=== PATIENT | female | born 1955 | race African-American/Black ===

== ENCOUNTER 2016-11-22 21:05 | Emergency (ER) | payer BC ==
[~2016-11-22] VITALS: Ht 152.4 cm; Wt 67.0 kg
[~2016-11-22 21:05] MED LIST: ACET325S8 PR; BENI20TA25 PO; HYDR50TA5 PO; NAPR220T95 PO; VERA180C PO
[2016-11-22 21:25] VITALS: BP 161/94; PULSE 89; RESP 20; TEMP 98.5; O2SAT 98
--- NOTE | 2016-11-22 21:57 | PD ---
HPI Chief Complaint: Headache Time Seen by Provider: 21:49 Travel History International Travel<30 days: No Contact w/Intl Traveler<30days: No Traveled to known affect area: No History of Present Illness HPI The patient is a 61-year-old female that complains of a bifrontal headache for 3 years, worse in the last 2 weeks. She is starting been to [facility] where CAT scan was negative. She does have a history of hypertension and will see her primary care physician, Dr. Guerra, tomorrow. Apparently, she was put on an antidepressant which she did not like and she felt that it made her blood pressure elevate and so she discontinued it. She took a hydrocodone for the pain and she got nauseated later but this nausea has resolved. There was no vomiting. PFSH Past Medical History Cancer: No Cardiovascular Problems: No COPD: Yes Diabetes: No Diminished Hearing: No Endocrine: No Genitourinary: No Hepatitis: No Hiatal Hernia: No Hypertension: Yes Immune Disorder: No Musculoskeletal: No Neurologic: No Psychiatric: No Reproductive: No Respiratory: Yes (COPD, ASTHMA) Thyroid Disease: No Tetanus Vaccination: Unknown Influenza Vaccination: No ?: Not Menopausal: Yes Past Surgical History Surgical History: No Previous Surgery AICD: No Gynecologic Surgery: Yes (partial hysterectomy) Joint Replacement: No Pacemaker: No Other Surgery: Yes Social History Alcohol Use: No Tobacco Use: No Substance Use: No Allergies-Medications (Allergen,Severity, Reaction): Coded Allergies: No Known Allergies (Verified , 09/21/14) Reported Meds & Prescriptions Reported Meds & Active Scripts Active Reported Lortab (Hydrocodone-Acetaminophen) 5-325 Mg Tab 1 Tab PO Q4H PRN Clonidine (Clonidine HCl) 0.1 Mg Tab 0.1 Mg PO QID PRN Hydrochlorothiazide 25 Mg Tab 25 Mg PO DAILY Losartan (Losartan Potassium) 50 Mg Tab 50 Mg PO DAILY Proair Respiclick Inh (Albuterol Sulfate) 90 Mcg/Act Aerp 1 Puff INH Q4H PRN Review of Systems Except as stated in HPI: all other systems reviewed are Neg Physical Exam Narrative GENERAL: The patient is alert, oriented 3 and slight apparent distress with her headache. Her vital signs show blood pressure 161/94 but are otherwise normal. SKIN: Focused skin assessment warm/dry. HEAD: Atraumatic. Normocephalic. EYES: Pupils equal and round. No scleral icterus. No injection or drainage. ENT: No nasal bleeding or discharge. Mucous membranes pink and moist. NECK: Trachea midline. No JVD. There is no meningismus and the patient flexes neck fully without any hesitation. CARDIOVASCULAR: Regular rate and rhythm. No murmur appreciated. RESPIRATORY: No accessory muscle use. Clear to auscultation. Breath sounds equal bilaterally. GASTROINTESTINAL: Abdomen soft, non-tender, nondistended. Hepatic and splenic margins not palpable. MUSCULOSKELETAL: No obvious deformities. No clubbing. No cyanosis. No edema. NEUROLOGICAL: Awake and alert. No obvious cranial nerve deficits. Motor grossly within normal limits. Normal speech. PSYCHIATRIC: Appropriate mood and affect; insight and judgment normal. Data Data Last Documented VS Vital Signs Date Time Temp Pulse Resp B/P Pulse Ox O2 Delivery O2 Flow Rate FiO2 11/22/16 23:08 78 16 139/86 98 Room Air 11/22/16 21:25 98.5 Orders Lorazepam (Ativan) (11/22/16 22:00) Westergren Sedimentation Rate (11/22/16 21:57) Complete Blood Count With Diff (11/22/16 21:58) Basic Metabolic Panel (Bmp) (11/22/16 21:58) Ecg Monitoring (11/22/16 21:58) Iv Access Insert/Monitor (11/22/16 21:58) Oximetry (11/22/16 21:58) Sodium Chloride 0.9% Flush (Ns Flush) (11/22/16 22:00) Ketorolac Inj (Toradol Inj) (11/22/16 22:00) Diphenhydramine Inj (Benadryl Inj) (11/22/16 22:00) Labs Laboratory Tests Test 11/22/16 11/22/16 22:00 22:05 White Blood Count 6.5 TH/MM3 Red Blood Count 4.28 MIL/MM3 Hemoglobin 11.8 GM/DL Hematocrit 36.7 % Mean Corpuscular Volume 85.7 FL Mean Corpuscular Hemoglobin 27.6 PG Mean Corpuscular Hemoglobin 32.2 % Concent Red Cell Distribution Width 14.3 % Platelet Count 221 TH/MM3 Mean Platelet Volume 9.0 FL Neutrophils (%) (Auto) 61.7 % Lymphocytes (%) (Auto) 28.6 % Monocytes (%) (Auto) 7.0 % Eosinophils (%) (Auto) 2.2 % Basophils (%) (Auto) 0.5 % Neutrophils # (Auto) 4.0 TH/MM3 Lymphocytes # (Auto) 1.9 TH/MM3 Monocytes # (Auto) 0.5 TH/MM3 Eosinophils # (Auto) 0.1 TH/MM3 Basophils # (Auto) 0.0 TH/MM3 CBC Comment DIFF FINAL Differential Comment Sodium Level 146 MEQ/L Potassium Level 3.0 MEQ/L Chloride Level 111 MEQ/L Carbon Dioxide Level 27.6 MEQ/L Anion Gap 7 MEQ/L Blood Urea Nitrogen 17 MG/DL Creatinine 0.93 MG/DL Estimat Glomerular Filtration 74 ML/MIN Rate Random Glucose 107 MG/DL Calcium Level 8.8 MG/DL Erythrocyte Sedimentation Rate 9 mm/hr MDM Medical Decision Making Medical Screen Exam Complete: Yes Emergency Medical Condition: Yes Medical Record Reviewed: Yes Interpretation(s) The CBC and sedimentation rate are normal. The sodium is 136, potassium 3.0, GFR of 74 but the rest of the basic metabolic profile is normal. Differential Diagnosis Tension headache, migraine headache, intracranial bleedhighly unlikely, temporal arteritishighly unlikely, electrolyte imbalance, renal insufficiency, hyper/hypoglycemia Narrative Course The patient has a hypokalemia, this is likely because she is taking hydrochlorothiazide. She will be given a prescription for potassium. It is now 11:15 and the patient feels much better and her blood pressure is 139/86. The patient was given 1 mg of lorazepam by mouth. She was also given Toradol and 25 mg of diphenhydramine for the headache. The headache is likely a tension headache. Impression: Anxiety related hypertension and hypokalemia from hydrochlorothiazide Diagnosis Primary Impression: Anxiety Additional Impressions: Hypertension Diuretic-induced hypokalemia Additional Instructions: Take the lorazepam as needed when you get anxious and her blood pressure goes up. Hopefully, you can keep it down to one tablet daily. The potassium pill is taken one tablet daily. Follow-up with Dr. Guerra as scheduled. Med/Other Pt SpecificInfo: Prescription(s) given Scripts Lorazepam 1 Mg Tab1 Mg PO DAILY PRN (ANXIETY) #30 TAB Ref 0 Prov:Sergio Loving MD 11/22/16 Potassium Chloride ER (K-Tab)10 Meq Tab10 Meq PO DAILY #30 TAB Ref 0 Prov:Sergio Loving MD 11/22/16 Disposition: 01 DISCHARGE HOME Condition: Stable Sergio Loving MD Nov 22, 2016 21:56
[2016-11-22] MEDS ORDERED: LORazepam 1 MG TAB PO ONE (22:00)
[2016-11-22] MEDS ORDERED: KETOROLAC TROMETHAMINE 30 MG/ML (IVP) VIAL IVP ONE (22:00)
[2016-11-22] MEDS ORDERED: diphenhydrAMINE HCL 50 MG/ML VIAL IVP ONE (22:00)
[2016-11-22] MEDS ORDERED: SODIUM CHLORIDE 0.9% FLUSH 10 ML FLUSH IVF PRN (22:00)
[2016-11-22] MEDS ORDERED: ALBU1AER5 INH (22:01)
[2016-11-22] MEDS ORDERED: HYDR-3533 PO (22:01)
[2016-11-22] MEDS ORDERED: CLON0.1T PO (22:01)
[2016-11-22] MEDS ORDERED: LOSA50TA PO (22:01)
[2016-11-22] MEDS ORDERED: HYDR25TA5 PO (22:01)
[2016-11-22 22:21] VITALS: BP 150/106; PULSE 80; RESP 18; O2SAT 99
[2016-11-22 22:28] LABS: BASOPHIL % 0.5 % (0.0-2.0); EOSINOPHIL # 0.1 TH/MM3 (0-0.4); EOSINOPHIL % 2.2 % (0.0-4.0); HEMATOCRIT 36.7 % (35.0-46.0); LYMPH % 28.6 % (9.0-44.0); LYMPHOCYTE # 1.9 TH/MM3 (1.0-4.8); MEAN CELL VOLUME 85.7 FL (80.0-100.0); MEAN CORPUSCULAR HEMOGLOBIN 27.6 PG (27.0-34.0); MEAN CORPUSCULAR HGB CONC 32.2 % (32.0-36.0); NEUT % 61.7 % (16.0-70.0); PLATELET COUNT 221 TH/MM3 (150-450); RED BLOOD COUNT 4.28 MIL/MM3 (4.00-5.30); RED CELL DISTRIBUTION WIDTH 14.3 % (11.6-17.2); WHITE BLOOD COUNT 6.5 TH/MM3 (4.0-11.0)
[2016-11-22 22:40] LABS: BICARBONATE 27.6 MEQ/L (21.0-32.0)
[2016-11-22 22:41] LABS: HEMO FLAGS DIFF FINAL
[2016-11-22 23:08] VITALS: BP 139/86; PULSE 78; RESP 16; O2SAT 98
[2016-11-22] MEDS ORDERED: LORA1TAB12 PO (23:21)
[2016-11-22] MEDS ORDERED: K-TA10TA PO (23:21)
[2016-11-22 23:43] VITALS: BP 116/79
== END 2016-11-22 23:44 | disposition home or self-care (01) ==
LOC: PHED 21:05
DX: F41.9 Anxiety disorder, unspecified (principal); I10 Essential (primary) hypertension; E87.6 Hypokalemia; T50.2X5A Adverse effect of carbonic-anhydrase inhibitors, benzothiadiazides and other diuretics, initial encounter; R51 Headache; J44.9 Chronic obstructive pulmonary disease, unspecified; J45.909 Unspecified asthma, uncomplicated
CPT/HCPCS: 80048; 85025; 85652; 96374; 96375; 99284; J1200; J1885

== ENCOUNTER 2017-09-28 10:22 | Observation (INO) | payer BC ==
[2017-09-28] VITALS (8 sets, daily range): BP systolic 100–176; BP diastolic 57–101; PULSE 62–108; RESP 16–20; TEMP 97.6–100.1; O2SAT 95–99
[~2017-09-28] VITALS: Ht 172.7 cm; Wt 69.5 kg
[~2017-09-28 10:22] MED LIST changes: -ACET325S8 PR; +ALBU1AER5 INH; -BENI20TA25 PO; +CLON0.1T PO; +HYDR-3533 PO; +HYDR25TA5 PO; -HYDR50TA5 PO; +K-TA10TA PO; +LORA1TAB12 PO; +LOSA50TA PO; -NAPR220T95 PO; -VERA180C PO
--- NOTE | 2017-09-28 10:39 | PD ---
HPI Chief Complaint: Chest pain Time Seen by Provider: 10:36 Travel History International Travel<30 days: No Contact w/Intl Traveler<30days: No Traveled to known affect area: No History of Present Illness HPI This 61-year-old female is brought from Dr. Guerra's office by ambulance. She says she went there because she was having chest pain. She been having some pain over the weekend in both arms and her chest. The pain is not pleuritic and was fairly constant over the course of over a day. Dr. Guerra 's office she was given a nitroglycerin and she says that seemed to relieve the pain. After the nitro however she got very lightheaded and sweaty and had to lay down. At that point an ambulance was called she has no history of heart disease. She has been diagnosed with COPD. She has never smoked. She does use an inhaler. She has a history of hypertension and is on hydrochlorothiazide , clonidine and losartan. She was given aspirin in the ambulance on the way here PFSH Past Medical History Cancer: No Cardiovascular Problems: No COPD: Yes Diabetes: No Diminished Hearing: No Endocrine: No Genitourinary: No Hepatitis: No Hiatal Hernia: No Hypertension: Yes Immune Disorder: No Musculoskeletal: No Neurologic: No Psychiatric: No Reproductive: No Respiratory: Yes (COPD, ASTHMA) Thyroid Disease: No Menopausal: Yes Past Surgical History AICD: No Gynecologic Surgery: Yes (partial hysterectomy) Joint Replacement: No Pacemaker: No Other Surgery: Yes Social History Alcohol Use: No Tobacco Use: No Substance Use: No Allergies-Medications (Allergen,Severity, Reaction): Coded Allergies: No Known Allergies (Verified , 09/21/14) Reported Meds & Prescriptions Reported Meds & Active Scripts Active Reported Pravastatin 10 Mg Tab 10 Mg PO DAILY Lorazepam 1 Mg Tab 1 Mg PO Q8H PRN Tramadol (Tramadol HCl) 50 Mg Tab 50 Mg PO Q6H PRN Flexeril (Cyclobenzaprine HCl) 10 Mg Tab 10 Mg PO TID Cetirizine (Cetirizine HCl) 10 Mg Tab 10 Mg DAILY Aspirin 81 Mg Chew 81 Mg CHEW DAILY Soma (Carisoprodol) 350 Mg Tab 350 Mg PO QID PRN Depakote ER (Divalproex Sodium) 500 Mg Ronny 500 Mg PO DAILY Losartan (Losartan Potassium) 100 Mg Tab 100 Mg PO DAILY Clonidine (Clonidine HCl) 0.1 Mg Tab 0.1 Mg PO QID PRN Hydrochlorothiazide 25 Mg Tab 25 Mg PO DAILY Proair Respiclick Inh (Albuterol Sulfate) 90 Mcg/Act Aerp 1 Puff INH Q4H PRN Review of Systems General / Constitutional: No: Fever, Chills Eyes: No: Diploplia, Blurred Vision HENT: No: Headaches, Vertigo Cardiovascular: Positive: Chest Pain or Discomfort, No: Irregular Rhythm Respiratory: Positive: Shortness of Breath Gastrointestinal: No: Vomiting, Diarrhea Genitourinary: No: Urgency, Frequency Musculoskeletal: No: Myalgias Skin: No Rash Neurologic: No: Weakness, Dizziness Hematologic/Lymphatic: No: Easy Bruising Physical Exam Narrative GENERAL: Well-developed female SKIN: Focused skin assessment warm/dry. HEAD: Atraumatic. Normocephalic. EYES: Pupils equal and round. No scleral icterus. No injection or drainage. ENT: No nasal bleeding or discharge. Mucous membranes pink and moist. NECK: Trachea midline. No JVD. CARDIOVASCULAR: Regular rate and rhythm. No murmur appreciated. There is no chest wall tenderness RESPIRATORY: No accessory muscle use. Clear to auscultation. Breath sounds equal bilaterally. GASTROINTESTINAL: Abdomen soft, non-tender, nondistended. Hepatic and splenic margins not palpable. MUSCULOSKELETAL: No obvious deformities. No clubbing. No cyanosis. No edema. NEUROLOGICAL: Awake and alert. No obvious cranial nerve deficits. Motor grossly within normal limits. Normal speech. PSYCHIATRIC: Appropriate mood and affect; insight and judgment normal. Data Data Last Documented VS Vital Signs Date Time Temp Pulse Resp B/P (MAP) Pulse Ox O2 Delivery O2 Flow Rate FiO2 09/28/17 12:55 75 176/100 (125) 98 09/28/17 10:55 98.2 16 Orders Orders Complete Blood Count With Diff (09/28/17 10:36) Comprehensive Metabolic Panel (09/28/17 10:36) Troponin I (09/28/17 10:36) D-Dimer (09/28/17 10:36) Magnesium (Mg) (09/28/17 10:36) Chest, Single Ap (09/28/17 10:36) Electrocardiogram (09/28/17 10:40) Acetaminophen (Tylenol) (09/28/17 11:15) Ct Pulmonary Angiogram (09/28/17 11:55) Iohexol 350 Inj (Omnipaque 350 Inj) (09/28/17 13:03) Clonidine (Catapres) (09/28/17 13:30) Admit Order (Ed Use Only) (09/28/17 13:35) Labs Laboratory Tests Test 09/28/17 11:07 White Blood Count 6.8 TH/MM3 Red Blood Count 4.50 MIL/MM3 Hemoglobin 12.8 GM/DL Hematocrit 39.0 % Mean Corpuscular Volume 86.7 FL Mean Corpuscular Hemoglobin 28.5 PG Mean Corpuscular Hemoglobin Concent 32.8 % Red Cell Distribution Width 13.9 % Platelet Count 182 TH/MM3 Mean Platelet Volume 8.9 FL Neutrophils (%) (Auto) 57.6 % Lymphocytes (%) (Auto) 34.2 % Monocytes (%) (Auto) 4.9 % Eosinophils (%) (Auto) 1.9 % Basophils (%) (Auto) 1.4 % Neutrophils # (Auto) 4.0 TH/MM3 Lymphocytes # (Auto) 2.3 TH/MM3 Monocytes # (Auto) 0.3 TH/MM3 Eosinophils # (Auto) 0.1 TH/MM3 Basophils # (Auto) 0.1 TH/MM3 CBC Comment DIFF FINAL Differential Comment D-Dimer Quantitative (PE/DVT) 0.68 MG/L FEU Blood Urea Nitrogen 23 MG/DL Creatinine 0.88 MG/DL Random Glucose 81 MG/DL Total Protein 6.7 GM/DL Albumin 3.2 GM/DL Calcium Level 8.4 MG/DL Magnesium Level 2.3 MG/DL Alkaline Phosphatase 75 U/L Aspartate Amino Transf (AST/SGOT) 21 U/L Alanine Aminotransferase (ALT/SGPT) 23 U/L Total Bilirubin 0.3 MG/DL Sodium Level 143 MEQ/L Potassium Level 4.0 MEQ/L Chloride Level 108 MEQ/L Carbon Dioxide Level 28.5 MEQ/L Anion Gap 7 MEQ/L Estimat Glomerular Filtration Rate 79 ML/MIN Troponin I LESS THAN 0.02 NG/ML MDM Medical Decision Making Medical Screen Exam Complete: Yes Emergency Medical Condition: Yes Medical Record Reviewed: Yes Differential Diagnosis Differential includes atypical chest pain, PE, coronary artery disease Narrative Course Patient was given nitroglycerin at Dr. Shah's office and has had prolonged relief of her pain. A d-dimer was ordered and has come back at 0.68 so a CTA has been ordered. EKG shows normal sinus rhythm. CT a has been done. There is no evidence of pulmonary embolus. She is noted to have spiculated parenchymal opacities in both upper lobes are peribronchial in location. They range in size up to 2 cm in size. Whether these are inflammatory or neoplasm is not clear. No other abnormality is noted. She was treated for a cough 2 weeks ago with a Z-Mesfin and a course of prednisone. I have discussed these opacities with her and she is under the impression that they have been present on previous x-rays Diagnosis Primary Impression: Chest pain Reno Barba MD Sep 28, 2017 10:39
[2017-09-28 11:14] LABS: BASOPHIL # 0.1 TH/MM3 (0-0.2); BASOPHIL % 1.4 % (0.0-2.0); EOSINOPHIL # 0.1 TH/MM3 (0-0.4); EOSINOPHIL % 1.9 % (0.0-4.0); HEMOGLOBIN 12.8 GM/DL (11.6-15.3); LYMPH % 34.2 % (9.0-44.0); LYMPHOCYTE # 2.3 TH/MM3 (1.0-4.8); MEAN CELL VOLUME 86.7 FL (80.0-100.0); MEAN CORPUSCULAR HEMOGLOBIN 28.5 PG (27.0-34.0); MEAN CORPUSCULAR HGB CONC 32.8 % (32.0-36.0); MEAN PLATELET VOLUME 8.9 FL (7.0-11.0); MONO % 4.9 % (0.0-8.0); MONOCYTE # 0.3 TH/MM3 (0-0.9); NEUT % 57.6 % (16.0-70.0); PLATELET COUNT 182 TH/MM3 (150-450); RED CELL DISTRIBUTION WIDTH 13.9 % (11.6-17.2); WHITE BLOOD COUNT 6.8 TH/MM3 (4.0-11.0)
[2017-09-28] MEDS ORDERED: ACETAMINOPHEN 325 MG TAB PO ONE (11:15)
[2017-09-28] MEDS ORDERED: DEPA500T3 PO (11:16)
[2017-09-28] MEDS ORDERED: CETI10 (11:16)
[2017-09-28] MEDS ORDERED: CYCL10TA PO (11:16)
[2017-09-28] MEDS ORDERED: TRAM50TA PO (11:16)
[2017-09-28] MEDS ORDERED: ASPI-516 CHEW (11:16)
[2017-09-28] MEDS ORDERED: LORA1TAB12 PO (11:16)
[2017-09-28] MEDS ORDERED: SOMA350T PO (11:16)
[2017-09-28] MEDS ORDERED: LOSA100T PO (11:16)
--- NOTE | 2017-09-28 11:18 | RADRPT ---
EXAM DATE/TIME: 09/28/2017 10:48 [facility] COMPARISON: No previous studies available for comparison. INDICATIONS : Chest pain & headaches. MEDICAL HISTORY : Hypertension. Chronic obstructive pulmonary disease. Asthma. SURGICAL HISTORY : Partial hysterectomy. ENCOUNTER: Initial ACUITY: 3 days PAIN SCORE: 6/10 LOCATION: chest FINDINGS: A single view of the chest demonstrates scattered interstitial densities. More prominent density note d within the left upper lobe. No consolidation. Heart and the upper limits of normal in size. The car diomediastinal contours are unremarkable. Osseous structures are intact. CONCLUSION: 1. Scattered interstitial densities with more prominent density in the left upper lobe. Underlying ma ss cannot be excluded. CT chest recommended. 2. No infiltrate. Gerson Brunner MD on September 28, 2017 at 11:15 Board Certified Radiologist. This report was verified electronically.
[2017-09-28 11:23] LABS: CHLORIDE 108 MEQ/L (98-107); SODIUM (NA) 143 MEQ/L (136-145)
[2017-09-28 11:26] LABS: CALCIUM 8.4 MG/DL (8.5-10.1)
[2017-09-28 11:27] LABS: ALBUMIN 3.2 GM/DL (3.4-5.0); BICARBONATE 28.5 MEQ/L (21.0-32.0); BLOOD UREA NITROGEN 23 MG/DL (7-18); GLUCOSE,RANDOM 81 MG/DL (74-106); MAGNESIUM 2.3 MG/DL (1.5-2.5)
[2017-09-28] MEDS ORDERED: PRAV10TA PO (11:28)
[2017-09-28 11:30] LABS: ALT (GPT) 23 U/L (10-53); AST (GOT) 21 U/L (15-37); CREATININE 0.88 MG/DL (0.50-1.00); GLOMERULAR FILTRATION RATE 79 ML/MIN (>89)
[2017-09-28 11:32] LABS: TOTAL BILIRUBIN ADULT 0.3 MG/DL (0.2-1.0); TOTAL PROTEIN 6.7 GM/DL (6.4-8.2)
[2017-09-28 11:33] LABS: ALKALINE PHOSPHATASE 75 U/L (45-117)
[2017-09-28 11:35] LABS: TROPONIN I LESS THAN 0.02 NG/ML (0.02-0.05)
[2017-09-28] MEDS ORDERED: IOHEXOL 350 MG/ML 10 ML VIAL (for RAD DIAG) IVCONTRAST ONE (13:03)
--- NOTE | 2017-09-28 13:15 | RADRPT ---
EXAM DATE/TIME: 09/28/2017 12:54 This report includes an Addendum and supersedes previous reports for this exam. [facility] COMPARISON: No previous studies available for comparison. INDICATIONS : Chest pain. Evaluate for pulmonary embolism. IV CONTRAST: 65 cc Omnipaque 350 (iohexol) IV RADIATION DOSE: 11.08 CTDIvol (mGy) MEDICAL HISTORY : Hypertension. Chronic obstructive pulmonary disease. SURGICAL HISTORY : Hysterectomy. ENCOUNTER: Initial ACUITY: 2 days PAIN SCALE: 4/10 LOCATION: chest TECHNIQUE: Volumetric scanning of the chest was performed using a pulmonary embolism protocol MIP images were re constructed. Using automated exposure control and adjustment of the mA and/or kV according to patien t size, radiation dose was kept as low as reasonably achievable to obtain optimal diagnostic quality images. DICOM format image data is available electronically for review and comparison. Follow-up recommendations for detected pulmonary nodules are based at a minimum on nodule size and pa tient risk factors according to Fleischner Society Guidelines. FINDINGS: PULMONARY ARTERIES: No filling defects are seen in the pulmonary arteries through the segmental level. LUNGS: Spiculated parenchymal opacities are identified in both upper lobes. They are predominantly peribronc hial location. They range in size up to 2 cm in size. PLEURAE: There is no pleural thickening or pleural effusion. MEDIASTINUM: There is good visualization of the great vessels of the middle mediastinum. No evidence of mediastin al or hilar adenopathy/mass. MUSCULOSKELETAL: Within normal limits for patient age. MISCELLANEOUS: The visualized upper abdominal organs demonstrate no acute abnormality. CONCLUSION: 1. No evidence of pulmonary embolism. 2. Spiculated parenchymal opacities in both upper lobes. It is uncertain whether this represents an i nflammatory process or neoplasm. 3. No other significant abnormality. Kirk Reeves MD on September 28, 2017 at 13:07 Board Certified Radiologist. This report was verified electronically. ADDENDUM: An addendum is being created since it has become known that the patient has a prior chest CT performe d at [facility] on 12/19/2014. The bilateral upper lobe predominant parenchymal opaciti es are stable. In particular the spiculated nodular areas described above are all completely unchange d. There is a subpleural 3 mm nodule in the left lower lobe that is also stable. Etiology for these r emains uncertain but likely represents parenchymal scar related to some type of prior infectious or i nflammatory process. Raudel Tatum MD on September 29, 2017 at 11:19 Board Certified Radiologist. This report was verified electronically.
[2017-09-28] MEDS ORDERED: cloNIDine HCL 0.1 MG TAB PO ONE (13:30)
[2017-09-28] MEDS ORDERED: ACETAMINOPHEN 500 MG CPLT PO PRN (14:15)
[2017-09-28] MEDS ORDERED: ONDANSETRON HCL 4 MG/2 ML VIAL IV PUSH PRN (14:15)
[2017-09-28] MEDS ORDERED: NITROGLYCERIN 0.4 MG SL 25 TABS/BTL SL PRN (14:15)
[2017-09-28] MEDS ORDERED: ACETAMINOPHEN/HYDROcodone 325 MG/7.5 MG TAB PO PRN (14:15)
[2017-09-28] MEDS ORDERED: SODIUM CHLORIDE 0.9% FLUSH 10 ML FLUSH IV FLUSH PRN (14:15)
[2017-09-28] MEDS ORDERED: MORPHINE SULFATE 4 MG/ML INJ IV PUSH PRN (14:15)
[2017-09-28 16:04] LABS: TROPONIN I LESS THAN 0.02 NG/ML (0.02-0.05)
--- NOTE | 2017-09-28 17:50 | HHI.HP ---
[facility] Charbel Guerra MD Admission Diagnosis CHEST PAIN Diagnoses: (1) Chest pain Diagnosis: Principal Chief Complaint: Chest discomfort Travel History International Travel<30 Days: No Contact w/Intl Traveler <30 Da: No Traveled to Known Affected Are: No History of Present Illness 61-year-old female with known history of hypertension, chronic obstructive pulmonary disease, hyperlipidemia who presented to hospital at the request her primary medical doctor for evaluation chest pain. Patient states that she went to her primary medical doctor's office today to follow-up on her COPD. She had a chest x-ray and when she was there she notified them that she was having some chest discomfort in the gave her some nitroglycerin and called [facility] who brought her to the hospital for evaluation. She indicates that for the last week she has been experiencing a constant mid chest pain which sometimes radiates into the left side of her neck and into both of her arms. Patient denies any nausea, vomiting, shortness of breath, dyspnea, diaphoresis, lightheadedness, dizziness. Patient indicates that the nitroglycerin did not relieve her discomfort. Pain is not worse with rest or with exertion. Patient had workup done emergency department and found to have spiculated parenchymal opacity's and both upper lobes, I did discuss this with the patient who she states that she thinks that those have been there for a while. She indicates that her primary medical doctor has been doing follow-up CT scans on her chest periodically and last time sugar member there is been no significant changes. We'll need to obtain records for verification. Review of Systems Cardiovascular: COMPLAINS OF: Chest pain Except as stated in HPI: all other systems reviewed are Neg Past Family Social History Past Medical History Hypertension Hyperlipidemia Chronic obstructive pulmonary disease Past Surgical History Partial hysterectomy Reported Medications Reported Meds & Active Scripts Active Reported Pravastatin 10 Mg Tab 10 Mg PO DAILY Lorazepam 1 Mg Tab 1 Mg PO Q8H PRN Tramadol (Tramadol HCl) 50 Mg Tab 50 Mg PO Q6H PRN Flexeril (Cyclobenzaprine HCl) 10 Mg Tab 10 Mg PO TID Cetirizine (Cetirizine HCl) 10 Mg Tab 10 Mg DAILY Aspirin 81 Mg Chew 81 Mg CHEW DAILY Soma (Carisoprodol) 350 Mg Tab 350 Mg PO QID PRN Depakote ER (Divalproex Sodium) 500 Mg Ronny 500 Mg PO DAILY Losartan (Losartan Potassium) 100 Mg Tab 100 Mg PO DAILY Clonidine (Clonidine HCl) 0.1 Mg Tab 0.1 Mg PO QID PRN Hydrochlorothiazide 25 Mg Tab 25 Mg PO DAILY Proair Respiclick Inh (Albuterol Sulfate) 90 Mcg/Act Aerp 1 Puff INH Q4H PRN Allergies: Coded Allergies: No Known Allergies (Verified , 09/21/14) Family History Reviewed and significant for mother at 79 with abdominal aneurysm, hypertension, rheumatoid arthritis. Sister with breast cancer Social History Patient denies any tobacco, alcohol or illicit drugs Physical Exam Vital Signs Vital Signs Date Time Temp Pulse Resp B/P (MAP) Pulse Ox O2 Delivery O2 Flow Rate FiO2 09/28/17 16:14 09/28/17 15:22 98 21 09/28/17 14:25 62 155/99 (117) 99 09/28/17 12:55 75 176/100 (125) 98 09/28/17 10:55 98.2 73 16 155/98 (117) 98 Physical Exam GENERAL: Well-developed, well-nourished, in no acute distress. alert and orientated HEENT: Head is normocephalic without any lesions or masses noted. Facial features are symmetric. Eyes: Pupils equal round reactive to light. Extraocular muscles are intact. Conjunctivae were clear. Oropharyngeal: Pharynx without any erythema edema. Tongue is midline without deviation. Buccal mucosa is moist without any masses or lesions NECK: Supple without any masses. Trachea midline no deviation. No JVD, no bruits are appreciated CARDIAC: Regular rhythm, regular rate. S1/S2 are heard. 2/6 ejection murmur noted in aortic and mitral region. Gallops or rubs. LUNGS: Clear to auscultation bilaterally. No wheeze, rhonchi or rales. No use of accessory muscles on inspiration or expiration. ABDOMEN: Soft, nontender. Nondistended. Bowel sounds heard in all 4 quadrants. No organomegaly or masses. Negative rebound, negative guarding EXTREMITIES: No edema, pulses are equal bilaterally. No cyanosis or clubbing NEUROLOGY: Mood and affect appear appropriate. Cranial nerves II through XII grossly intact. Muscle strength 5/5 in upper and lower extremities bilaterally. Deep tendon reflexes are 2+ in upper and lower extremities bilaterally. Laboratory Laboratory Tests Test 09/28/17 11:07 09/28/17 15:30 White Blood Count 6.8 Red Blood Count 4.50 Hemoglobin 12.8 Hematocrit 39.0 Mean Corpuscular Volume 86.7 Mean Corpuscular Hemoglobin 28.5 Mean Corpuscular Hemoglobin Concent 32.8 Red Cell Distribution Width 13.9 Platelet Count 182 Mean Platelet Volume 8.9 Neutrophils (%) (Auto) 57.6 Lymphocytes (%) (Auto) 34.2 Monocytes (%) (Auto) 4.9 Eosinophils (%) (Auto) 1.9 Basophils (%) (Auto) 1.4 Neutrophils # (Auto) 4.0 Lymphocytes # (Auto) 2.3 Monocytes # (Auto) 0.3 Eosinophils # (Auto) 0.1 Basophils # (Auto) 0.1 CBC Comment DIFF FINAL Differential Comment D-Dimer Quantitative (PE/DVT) 0.68 Blood Urea Nitrogen 23 Creatinine 0.88 Random Glucose 81 Total Protein 6.7 Albumin 3.2 Calcium Level 8.4 Magnesium Level 2.3 Alkaline Phosphatase 75 Aspartate Amino Transf (AST/SGOT) 21 Alanine Aminotransferase (ALT/SGPT) 23 Total Bilirubin 0.3 Sodium Level 143 Potassium Level 4.0 Chloride Level 108 Carbon Dioxide Level 28.5 Anion Gap 7 Estimat Glomerular Filtration Rate 79 Troponin I LESS THAN 0.02 LESS THAN 0.02 Total Creatine Kinase 126 Creatine Kinase MB 1.3 Result Diagram: 09/28/17 1107 09/28/17 [address] Angiography 09/28/17 1155 Signed Impressions: Service Date/Time: Thursday, September 28, 2017 12:54 - CONCLUSION: 1. No evidence of pulmonary embolism. 2. Spiculated parenchymal opacities in both upper lobes. It is uncertain whether this represents an inflammatory process or neoplasm. 3. No other significant abnormality. Kirk Reeves MD Chest X-Ray 09/28/17 1036 Signed Impressions: Service Date/Time: Thursday, September 28, 2017 10:48 - CONCLUSION: 1. Scattered interstitial densities with more prominent density in the left upper lobe. Underlying mass cannot be excluded. CT chest recommended. 2. No infiltrate. Gerson F. Tocci, MD Caprini VTE Risk Assessment Beata VTE Risk Assessment: Mod/High Risk (score >= 2) Caprini Risk Assessment Model Point Value = 1 Point Value = 2 Point Value = 3 Point Value = 5 Age 41-60 Minor surgery BMI > 25 kg/m2 Swollen legs Varicose veins or History of unexplained or recurrent spontaneous Oral contraceptives or hormone replacement Sepsis (< 1 month) Serious lung disease, including pneumonia (< 1 month) Abnormal pulmonary function Acute myocardial infarction Congestive heart failure (< 1 month) History of inflammatory bowel disease Medical patient at bed rest Age 61-74 Arthroscopic surgery Major open surgery (> 45 min) Laparoscopic surgery (> 45 min) Malignancy Confined to bed (> 72 hours) Immobilizing plaster cast Central venous access Age >= 75 History of VTE Family history of VTE Factor V Leiden Prothrombin [id number] Lupus anticoagulant Anticardiolipin antibodies Elevated serum homocysteine Heparin-induced thrombocytopenia Other congenital or acquired thrombophilia Stroke (< 1 month) Elective arthroplasty Hip, pelvis, or leg fracture Acute spinal cord injury (< 1 month) Prophylaxis Regimen Total Risk Factor Score Risk Level Prophylaxis Regimen 0-1 Low Early ambulation 2 Moderate Order ONE of the following: *Sequential Compression Device (SCD) *Heparin 5000 units SQ BID 3-4 Higher Order ONE of the following medications: *Heparin 5000 units SQ TID *Enoxaparin/Lovenox 40 mg SQ daily (WT < 150 kg, CrCl > 30 mL/min) *Enoxaparin/Lovenox 30 mg SQ daily (WT < 150 kg, CrCl > 10-29 mL/min) *Enoxaparin/Lovenox 30 mg SQ BID (WT < 150 kg, CrCl > 30 mL/min) AND/OR *Sequential Compression Device (SCD) 5 or more Highest Order ONE of the following medications: *Heparin 5000 units SQ TID (Preferred with Epidurals) *Enoxaparin/Lovenox 40 mg SQ daily (WT < 150 kg, CrCl > 30 mL/min) *Enoxaparin/Lovenox 30 mg SQ daily (WT < 150 kg, CrCl > 10-29 mL/min) *Enoxaparin/Lovenox 30 mg SQ BID (WT < 150 kg, CrCl > 30 mL/min) AND *Sequential Compression Device (SCD) Assessment and Plan Assessment and Plan Chest pain, atypical Patient has have increased risk factors to include age, hypertension, hyperlipidemia, family history We'll continue to rule patient out for acute coronary event with serial cardiac enzymes with thus far are negative Serial EKGs which reviewed by us shows sinus rhythm with nonspecific T-wave abnormalities. No acute changes Once ruled out for acute coronary event. Will pursue myocardial perfusion study to rule out any underlying ischemia Continue aspirin, nitroglycerin as needed, morphine for pain control, oxygen Check lipid panel CT abnormality Multiple speculated parenchymal densities, patient states that she believes that they have been followed on a regular basis obtain outpatient records from primary medical doctor to confirm stability Hypertension, hyperlipidemia Home medications will be continued Statin continued Chronic obstructive pulmonary disease Duo nebs as needed DVT prevention Sequential compression devices Remy Loving Sep 28, 2017 17:50
[2017-09-28] MEDS ORDERED: cloNIDine HCL 0.1 MG TAB PO PRN (18:00)
[2017-09-28] MEDS ORDERED: RESP: ALBUTEROL 2.5 MG/IPRATROPIUM 0.5 MG NEB (PRN) NEB (18:00)
[2017-09-28 19:19] LABS: TROPONIN I LESS THAN 0.02 NG/ML (0.02-0.05)
[2017-09-28] MEDS: SODIUM CHLORIDE 0.9% FLUSH 10 ML FLUSH IV FLUSH SCH (21:37)
--- NOTE | 2017-09-28 21:51 | EKG ---
Date Performed: 09/28/2017 Time Performed: 10:25:39 PTAGE: 61 years EKG: Sinus rhythm NORMAL ECG PREVIOUS TRACING : 09/21/2014 06.08 Since the prior tracing, there has been no significant de la rosa queta DOCTOR: Alonso Bukc Interpretating Date/Time 09/28/2017 21:49:44
[2017-09-29] VITALS: BP 144/86; PULSE 58; RESP 20; TEMP 97.4; O2SAT 99
[2017-09-29 04:00] VITALS: BP 144/92; PULSE 60; RESP 20; TEMP 96.3; O2SAT 99
[2017-09-29 08:00] VITALS: BP 160/100; PULSE 62; RESP 16; TEMP 97.7; O2SAT 100
--- NOTE | 2017-09-29 08:58 | HHI.PR ---
Subjective Remarks Patient is examined today for follow-up on chest pain. Patient is resting comfortably. Denies any recurrent episodes of pain. Discussed with patient, family at bedside. Objective Vitals Vital Signs Date Time Temp Pulse Resp B/P (MAP) Pulse Ox O2 Delivery O2 Flow Rate FiO2 09/29/17 08:00 97.7 62 16 160/100 (120) 100 09/29/17 04:00 96.3 60 20 144/92 (109) 99 09/29/17 00:00 97.4 58 20 144/86 (105) 99 09/28/17 21:00 73 09/28/17 20:59 98 21 09/28/17 20:00 98.3 72 20 115/72 (86) 98 09/28/17 16:14 09/28/17 16:00 97.6 66 16 170/101 (124) 95 09/28/17 15:22 98 21 09/28/17 14:25 62 155/99 (117) 99 09/28/17 12:55 75 176/100 (125) 98 09/28/17 10:55 98.2 73 16 155/98 (117) 98 I/O 09/28/17 09/28/17 09/28/17 09/29/17 09/29/17 09/29/17 07:00 15:00 23:00 07:00 15:00 23:00 Intake Total 0 ml Balance 0 ml Intake Oral 0 ml # Voids 1 1 Result Diagram: 09/28/17 1107 09/28/17 1107 Objective Remarks GENERAL: Well-developed, well-nourished, in no acute distress. alert and orientated HEENT: Head is normocephalic without any lesions or masses noted. Facial features are symmetric. Eyes: Extraocular muscles are intact. Conjunctivae were clear. NECK: Supple without any masses. Trachea midline no deviation. No JVD, CARDIAC: Regular rhythm, regular rate. S1/S2 are heard. 2/6 ejection murmur noted in aortic and mitral region. Gallops or rubs. LUNGS: Clear to auscultation bilaterally. No wheeze, rhonchi or rales. No use of accessory muscles on inspiration or expiration. ABDOMEN: Soft, nontender. Nondistended. Bowel sounds heard in all 4 quadrants. No organomegaly or masses. Negative rebound, negative guarding EXTREMITIES: No edema, pulses are equal bilaterally. No cyanosis or clubbing NEUROLOGY: Mood and affect appear appropriate. Cranial nerves II through XII grossly intact.Moving all extremities, speech is clear Urinary Catheter: No Vascular Central Line Catheter: No A/P Assessment and Plan Chest pain, atypical Patient has have increased risk factors to include age, hypertension, hyperlipidemia, family history Patient has been ruled out for acute coronary event with serial cardiac enzymes which were negative Serial EKGs which reviewed by myself shows sinus rhythm with nonspecific T- wave abnormalities. No acute changes Myocardial perfusion study was performed which did not indicate any ischemia , low risk Continue aspirin, nitroglycerin as needed, morphine for pain control, oxygen CT abnormality Multiple speculated parenchymal densities, patient states that she believes that they have been followed on a regular basis Outpatient records were obtained, CTs were reviewed by radiologist. Opacities have remained stable since December 19, 2014 Hypertension, hyperlipidemia Home medications will be continued LDL 113 Pravastatin was continued Chronic obstructive pulmonary disease Duo nebs as needed DVT prevention Sequential compression devices Discharge Planning rge home in stable condition Activity: Ad Brittany Diet: Healthy heart diet Medications per medication reconciliation sheet Follow up with primary medical doctor in 1 week Remy Loving Sep 29, 2017 08:58
[2017-09-29] MEDS ORDERED: ASPIRIN 325 MG TAB PO SCH (09:00)
[2017-09-29] MEDS ORDERED: HYDROCHLOROTHIAZIDE 25 MG TAB PO SCH (09:00)
[2017-09-29] MEDS ORDERED: LOSARTAN 50 MG TAB PO SCH (09:00)
[2017-09-29] MEDS ORDERED: PRAVASTATIN SOD 10 MG TAB PO SCH (09:00)
[2017-09-29 09:38] LABS: CHOLESTEROL/ HDL RATIO 2.75 RATIO; HDL CHOLESTEROL 71.9 MG/DL (40.0-60.0)
[2017-09-29] MEDS ORDERED: REGADENOSON INJ 0.4 MG/5 ML SYR IV ONE (09:41)
[2017-09-29] MEDS: SODIUM CHLORIDE 0.9% FLUSH 10 ML FLUSH IV FLUSH SCH (10:54)
--- NOTE | 2017-09-29 10:55 | RADRPT ---
EXAM DATE/TIME: 09/29/2017 09:14 [facility] COMPARISON: No previous studies available for comparison. INDICATIONS : Chest pain for 1 day. Angina. DOSE: 25.9 mCi Tc99m Myoview at stress. 8.2 mCi Tc99m Myoview at rest. 0.4 mg Lexiscan STRESS SYMPTOMS: None noted. EJECTION FRACTION: > 70% INJECTION SITE: Left Hand MEDICAL HISTORY : Hypertension. Chronic obstructive pulmonary disease. SURGICAL HISTORY : Hysterectomy. ENCOUNTER: Initial ACUITY: 1 day PAIN SCALE: 3/10 LOCATION: Bilateral chest TECHNIQUE: The patient underwent pharmacologic stress with infusion of prescribed dose. Continuous ECG tracing was monitored during stress. Gated SPECT imaging was performed after stress and conventional SPECT i maging was performed at rest. The examination was performed on a SPECT/CT scanner, both attenuation and non-corrected datasets were reviewed. FINDINGS: DISTRIBUTION: The maximum perfused segment at stress is in the anterior and septal regions. wall. Questionable fi xed defect anterior wall with normal wall motion. Moderate gut activity does obscure the inferior wal l. PERFUSION STUDY: There is no perfusion defects.. GATED STUDY: Minimal hypokinesis anterior myocardium CONCLUSION: Negative for stress-induced ischemia. RISK CATEGORY: Low (<1% Annual Mortality Rate) Jassi Simms MD FACR on September 29, 2017 at 10:53 Board Certified Radiologist. This report was verified electronically.
--- NOTE | 2017-09-29 11:04 | HHI.DCPOC ---
Discharge Care Plan Diagnosis: (1) Chest pain Goals to Promote Your Health * To prevent worsening of your condition and complications * To maintain your health at the optimal level Directions to Meet Your Goals Take your medications as prescribed Follow your dietary instruction Follow activity as directed Keep your appointments as scheduled Take your immunizations and boosters as scheduled If your symptoms worsen call your PCP, if no PCP go to Urgent Care Center or Emergency Room Smoking is Dangerous to Your Health. Avoid second hand smoke Call the 24-hour hour crisis hotline for domestic abuse at Remy Loving Sep 29, 2017 11:04
--- NOTE | 2017-09-29 12:26 | EKG ---
Date Performed: 09/28/2017 Time Performed: 18:38:25 PTAGE: 61 years EKG: Sinus rhythm NONSPECIFIC T-WAVE ABNORMALITY BORDERLINE ECG PREVIOUS TRACING : 09/28/2017 14.14 Since the prior tracing, there has been no significant de la rosa DOCTOR: Laron Orourke Interpretating Date/Time 09/29/2017 12:25:16
--- NOTE | 2017-09-29 12:27 | EKG ---
Date Performed: 09/28/2017 Time Performed: 14:14:35 PTAGE: 61 years EKG: Sinus rhythm NONSPECIFIC T-WAVE ABNORMALITY BORDERLINE ECG PREVIOUS TRACING : 09/28/2017 10.25 Since the prior tracing, there has been no significant de la rosa DOCTOR: Laron Orourke Interpretating Date/Time 09/29/2017 12:25:24
--- NOTE | 2017-09-30 18:08 | TR ---
Date Performed: 09/29/2017 Time Performed: 09:49:40 DOCTOR: Angelina Willard DRUG LIST: CLINICAL HISTORY: REASON FOR TEST: REASON FOR ENDING: OBSERVATION: CONCLUSION: Lexiscan stress test was performed under standard four minute protocol. Radionuclid e was injected one minute prior to ending the test. No electrocardiographic abormalities were present to suggest ischemia. Nuclear imaging and interpretation are pending. COMMENTS:
== END 2017-09-29 12:09 | disposition home or self-care (01) ==
LOC: PHED 10:22 → PHEDA 13:37 → PH3B 16:09
PROVIDERS: ADMIT Hospitalist; ATTEND Hospitalist
DX: R07.89 Other chest pain (principal); I10 Essential (primary) hypertension; E78.5 Hyperlipidemia, unspecified; R42 Dizziness and giddiness; R61 Generalized hyperhidrosis; R51 Headache; I20.9 Angina pectoris, unspecified; J44.9 Chronic obstructive pulmonary disease, unspecified; Z79.899 Other long term (current) drug therapy; Z79.82 Long term (current) use of aspirin
CPT/HCPCS: 71045; 71275; 78452; 80053; 80061; 82550; 82552; 83735; 84484; 85025; 85379; 93005; 93017; 99285; A9502; G0378; J2785; Q9967